=== PATIENT | female | born 1960 | race Caucasian/White ===

== ENCOUNTER 2025-11-12 07:24 | Outpatient (OUT) | payer MEDICARE, SELFPAY ==
--- OUTSIDE RECORDS SUMMARY | 2025-11-12 07:29 | XMS_ITS | Patient Health Record ---
Author Organization [facility] in [place] Address [address] [place] [address] Care Team Providers Care Project Surveyor Name Role Phone Kenneth Johnson Primary Care Provider Allergies No Known Allergies Reason For Referral No Information Medications Medication SIG (Take, Route, Frequency, Duration) Notes Start Date End Date Status ZyrTEC 10 MG 1 tablet Orally Once a day PRN 024 Not-TakingVitamin D3 25 MCG (1000 UT)1 tablet Orally Once a day4Active Lisinopril 20 MG1 tablet Orally daily; Duration: 90 daysActiveAmoxicillin 500 MG 4 caps Orally once; Duration: 1 days5Active Immunizations Vaccine Route Administration Date Status Comme nts Flu, Flucelvax (2102-7261) ( [address]) 6 mos +, single-dose syringe Unknown 09/04/2023 Administered Spikevax Moderna Syringe Pre-Filled 50 mcg/0.5 mSYperquh36/16/2023Administered Social History Tobacco Use: Social History Observation Description Date Details (start date - stop date) Never Smoker NA - NA Tobacco Control (Standard) Question Answer Notes Tobacco use: Nonsmoker AUDIT-C (Standard) Question Answer Notes Did you have a drink containing alcohol in the p ast year? No Hehxwo2PgjfzuzajthrbiDyccsxlc Problems Problem Type SNOMED Code ICD Code Onset Dates Problem Status W/U Status Risk Notes Problem Type 2 diabetes mellitus (27855826) Type 2 diabetes mellitus (E11.9) ActiveconfirmedProblemWell adult (002572355)Well adult (Z00.00)Activeconfirmed ProblemFibrocystic breast changes (35339213)Fibrocystic breast disease (N60.19) ActiveconfirmedProblemInternal derangement of knee (50957458)Internal derangement of knee (M23.90)ActiveconfirmedProblemEssential hypertension (00794597)Essential Hypertension (I10)ActiveconfirmedProblemOsteoarthritis of knee (611011456)Knee osteoarthritis (M17.10)Activeconfirmed Vital Signs Blood pressure diastolic 102 mm Hg 10/25/2025 Scjyur93 in10/25/2025lood pressure bbqarguq138 mm Hg10/25/20253195Bfmvhc509.8 lbs 10/25/2025BMI46.77 kg/m210/25/2025 Encounters Encounter Location Date Provider Diagnosis [facility] [address] [place] [address] 05/07/[address] [facility] [place] [address] 10/25/2025Doug HoyType 2 diabetes mellitus E11.9 ; Fibrocystic breast disease N60.19 and Essential Hypertension I10 Assessments Encounter Date Diagnosis (ICD Code) Assessment Notes Treatment Notes Treatment Clinical Notes Section Notes 10/25/2025 Type 2 diabetes mellitus (ICD-10 - E11.9) 10/25/2025Fibrocystic breast disease (ICD-10 - N60.19)10/25/2025Essential Hypertension (ICD-10 - I10) Plan Of Treatment Pending Test Test Name Order Date CMP (COMPLETE METABOLIC PANEL) HEMOGLOBIN A1C (GLYCO) 04/13/2024 HEMOGLOBIN A1C (GLYCO) 10/25/2025 IRON, TOTAL 10/25/2025 IRON, TOTAL 04/13/2024 LIPID PANEL (CHOL/TRIG/HDL/LDL) 04/13/20 24 LIPID PANEL (CHOL/TRIG/HDL/LDL) 10/25/20 25 CBC WITH DIFF (EXP 09/2025) 04/13/2024 VITAMIN D, 25 LEVEL (TOTAL) 04/13/2024 VITAMIN D, 25 LEVEL (TOTAL) 10/25/2025 MAMM MAMMOGRAM CAD DIAGNOSTIC 04/13/2024 Insulin Level 10/25/2025 THYROID PANEL (T4/TSH/FREE T3) 5 THYROID PANEL (T4/TSH/FREE T3) 4 MM screening mammo BI 10/25/2025 CMP (COMP MET [place]) w/eGFR CKD-EPI 2024 CBC WITH DIFF 10/25/2025 Insurance Providers Payer Name Payer Address Payer Phone Subscriber Number Group Number Insured Name Patient Relationship to Insured Coverage Start Date Coverage End Date [place] [address] [place] [address] [id number] Phillip IslasgailPeterwild - patient is the insuredFORMERLY [facility] [address] [place] [id number], PhillipNickwild - patient is the insured Medical (General) History Medical History History ICD Code Essential Hypertension I10 Fibrocystic breast disease N60.19 Internal derangement of knee M23.90 Knee osteoarthritis M17.10 Shoulder impingement syndrome M75.40 Type 2 diabetes mellitus E11.9 Surgical History Surgery Date(Month/Year) Colonoscopy 2022 EKG CholecystectomyBilateral Knee Qinfxqqwdjx9174Anivg Rotator Cuff Hsecqd1743
--- OUTSIDE RECORDS SUMMARY | 2025-11-12 07:29 | XMS_ITS | Clinical Summary ---
Author Organization [facility] Address [address] [place] [address] Care Team Providers Care Deli Cutter Slicer Name Role Phone Unavailable Primary Care Provider Unavailabl e Social History Tobacco UseTypesPacks/DayYears UsedDateSmoking Tobacco: Never Assessed CommentsUnknownSex and Gender InformationValueDate RecordedSex Assigned at Not on fileLegal ItlJhorjv42/15/2023 6:46 PM EDTGender IdentityNot on fileSexual OrientationNot on file Plan of Treatment Not on file
--- OUTSIDE RECORDS SUMMARY | 2025-11-12 07:29 | XMS_ITS | Clinical Summary ---
Author Organization [facility] Address [address] [place] [address] Care Team Providers Care Odd Job Laborer Name Role Phone Hawk Johnson MD Primary Care Provider [phone] Allergies Active AllergyReactionsCriticalityNoted RmntDpbxjxazEafsyaBgidSmr29/10/2015 Medications MedicationSigDispense QuantityRefillsLast FilledStart DateEnd DateStatus oxyCODONE (ROXICODONE) 5 MG immediate release tablet 1-2 tablets every 4 hours as needed for pain 100 tablet ctive Active Problems ProblemNoted DateDiagnosed RjtcMlsxow79/21/2015 Assessment & Plan (06/04/2015 2:01 PM EDT): Asymptomatic and likely just from surgery Will monitor for acute loss Pain06/04/2015 Assessment & Plan (06/04/2015 2:02 PM EDT): Is having more pain in her right knee. She's utilizing the oxycodone, but not the Dilaudid. Will encourage her to ask for the Dilaudid as needed Znyodlu5304/30/2015 Assessment & Plan (04/30/2015 11:06 AM EDT): - advised weight diet and exercise and eventually weight reduction - verbalized understanding Mlqntebza92/16/2015 Assessment & Plan (04/30/2015 11:07 AM EDT): - likely secondary to orthostatics hypotension - resolved DJD (degenerative joint disease) of knee04/29/2015 Assessment & Plan (06/04/2015 2:01 PM EDT): 4 weeks s/p left TKA & 1 day s/p right TKA Assessment & Plan (06/04/2015 9:23 AM EDT): -S/P right TKA -PT/OT -Pain control -DVT proph Assessment & Plan (05/01/2015 11:42 AM EDT): - noted to have progressive knee pain that had been resistant to conservative treatment. She underwent left knee surgery on 04/29/[address] Caldwell - surgery for pain control, DVT prophyaxes and bowel regimen - incentive spirometry - she is hemodynamically stable, eating well with some ambulation. Okay to d/c per primary team Assessment & Plan (04/30/2015 9:58 AM EDT): -S/P left TKA -PT/OT -Pain control -DVT proph Family History Medical HistoryRelationCommentsHypertensionFatherBrain cancerMotherUterine cancerSister 1Uterine cancerSister 2RelationStatusCommentsFatherAliveMother DeceasedSister 1AliveSister 2Alive Social History Tobacco UseTypesPacks/DayYears UsedDateSmoking Tobacco: NeverAlcohol UseStandard Drinks/WeekCommentsYes0 (1 standard drink = 0.6 oz pure alcohol)rare CommentsNoSex and Gender InformationValueDate RecordedSex Assigned at BirthNot on fileLegal BkeQshkyk30/26/2014 3:56 PM EDTGender IdentityNot on fileSexual OrientationNot on file Last Filed Vital Signs Vital SignReadingTime TakenCommentsBlood Lpjgilos917/8706/05/2015 6:49 AM EDT Lqfkm358106/05/2015 6:49 AM IYDRjvztcvjuxp85.7 ??C (98.1 ??F)06/05/2015 6:49 AM EDTRespiratory Japq219006/05/2015 12:58 PM EDTOxygen Qnzbrdalov44%06/05/2015 6:49 AM EDTInhaled Oxygen Concentration--Uotved962.8 kg (279 lb 8.7 oz)06/03/2015 8:52 AM PDBTwjdiu015.6 cm (5' 6 )06/03/2015 8:52 AM EDTBody Mass Index45.12 06/03/2015 8:52 AM EDT Plan of Treatment Not on file Medical Devices ImplantedTypeAreaManufacturerDevice IdentifierShelf Expiration DateModel / Serial / LotCement 1 X 40 Palacos Bone Single - [id number] Implanted:Qty: 2 on 04/29/2015 [facility] XibiCwhacm24/31/[id number] / [id number] / [id number] 1 X 40 Palacos Bone Single - [id number] Implanted:Qty: 1 on [facility]/03/[facility]: FtggStuhmv76/01/[id number] / / [id number] 1 X 40 Palacos Bone Single - [id number] Implanted:Qty: 1 on 06/03/2015 [facility]: AqjsGjblsq29/01/[id number] / / [id number] 35mm All Poly Persona - [id number] Implanted:Qty: 1 on 04/29/2015 [facility] Main JETTK112/14/[id number] / [id number] / [id number] Sz F Tib 5deg Nonpor Lt Persona - [id number] Implanted:Qty: 1 on 04/29/2015 by Toby Caldwell MD at [facility]: Main JETTK01/12/540236-3341-925-88 / [id number] / [id number] Sz8 Lt Nrw Cr Cmt Ccr Persona - [id number] Implanted:Qty: 1 on 04/29/2015 by Toby Caldwell MD at [facility]: Main [id number] / [id number] / [id number] Surf Ef 3-11 10mm Lt Cr Vivacit-E Persona - [id number] Implanted:Qty: 1 on 04/29/2015 [facility] Main [id number] / [id number] / [id number] 35mm All Poly Persona - [id number] Implanted:Qty: 1 on 06/03/2015 [facility]: Main [id number] / [id number] / [id number] Surf Ef 5-6 10mm Prolong Fixed Lps-Flex Nexgen - [id number] Implanted:Qty: 1 on 06/03/2015 [facility]: Main [id number] / [id number] / [id number] E-Rt Tivanium Lps-Flex Nexgen - [id number] Implanted:Qty: 1 on 06/03/2015 [facility]: GingerVIRGIERYDER [id number] / [id number]- / [id number] Sz5 Tib Stemmed Precoat Nexgen - [id number] Implanted:Qty: 1 on 06/03/2015 [facility]: Main [id number] / [id number] / [id number] Insurance * Guarantor: Roshan, ThelmaAccount TypeRelation to PatientDate of BirthPhone Billing AddressPersonal/MmgbdvBiyr1960 [address] [address] Advance Directives For more information, please contact: [phone] * Full Code (Latest Code Status on File) Date ActivatedDate InactivatedComments06/03/2015 11:54 AM06/05/2015 3:50 PM * Full Code Date ActivatedDate InactivatedComments04/29/2015 1:13 PM05/01/2015 4:08 PM Care Teams Team MemberRelationshipSpecialtyStart DateEnd Date Hawk Johnson MD [address] [facility] [place] [address] PCP - GeneralFamily Medicine04/19/15
--- NOTE | 2025-11-12 07:41 | MM_ITS ---
Patient Name: BRYANNA BRADSHAW MR#: [id number] : 1960 Exam Date: 11/12/2025 Ordering Doctor: DR AMANDA HOLCOMB . RADIOLOGY REPORT PROCEDURE: MM TOMOSYNTHESIS SCREENING BI COMPARISON: MG MAMM SCREEN 3D HOLLI CAD, 01/11/2023. MG MAMM SCREEN 3D HOLLI CAD, 11/05/2021. MG MAMM SCREEN HOLLI W CAD, 08/19/2018. MG MAMM HOLLI SCRN W CAD DIG, 07/14/2013. INDICATIONS: Screening Calculator Name NCI Breast Cancer Risk Assessment Tool 5 Year Breast Cancer Risk 1.30% Lifetime Breast Cancer Risk 5.00% Personal Breast Cancer No Personal Ovarian Cancer No Treatments None Family Cancers Mother with brain cancer at age 82; Sister with uterine cancer at age 60; Sister with uterine cancer at age 63. LOCATION: [facility] BREAST COMPOSITION: There are scattered areas of fibroglandular density. FINDINGS: RIGHT BREAST: No significant suspicious finding. LEFT BREAST: No significant suspicious finding. DIAGNOSTIC CATEGORY 1--NEGATIVE. RECOMMENDATIONS: ROUTINE MAMMOGRAM AND CLINICAL EVALUATION IN 12 MONTHS. Dictated by: Sam Sosa DO on 11/12/2025 at 11:53 Approved by: Sam Sosa DO on 11/12/2025 at 11:54
[2025-11-12 07:53] LABS: Hematocrit 39.4 % (36.0-48.0); Hemoglobin 12.5 g/dL (12.0-16.0); Immature Granulocytes Abs Auto 0.02 10^3/uL (0.00-0.03); Immature Granulocytes Pct Auto 0.2 % (0.0-0.5); Lymphocytes Absolute Auto 1.6 10^3/uL (1.2-3.8); Mean Corpuscular HGB Conc 31.7 g/dL (29.9-35.2); Mean Corpuscular Hemoglobin 28.7 pg (26.7-34.0); Mean Corpuscular Volume 90.4 fL (81.0-99.0); Platelet Count 244 10^3/uL (150-450); Red Blood Count 4.36 10^6/uL (4.20-5.40); White Blood Count 8.1 10^3/uL (4.0-11.0)
[2025-11-12 09:06] LABS: Iron 53.0 ug/dL (50.0-170.0)
[2025-11-12 09:57] LABS: Alanine Aminotransferase 25 U/L (14-59); Albumin Globulin Ratio 0.8; Albumin Level 3.5 g/dL (3.4-5.0); Alkaline Phosphatase 105 U/L (46-116); Anion Gap 13.7; Aspartate Amino Transferase 11 U/L (15-37); Blood Urea Nitrogen 16.0 mg/dL (7.0-18.0); Calcium 9.1 mg/dL (8.5-10.1); Carbon Dioxide 27.9 mmol/L (21.0-32.0); Chloride 104 mmol/L (98-107); Cholesterol 164 mg/dL (<=200); Estimated GFR (African America >60 (>=60 mL/min/1.73m^2); Estimated GFR (Non-African Ame >60 (>=60 mL/min/1.73m^2); Free T3 2.58 pg/mL (2.18-3.98); Globulin 4.2 g/dL; Glucose 104 mg/dL (74-106); HDL Cholesterol 47 mg/dL (40-60); Potassium 3.6 mmol/L (3.5-5.1); Sodium 142 mmol/L (136-145); Thyroid Stimulating Hormone 2.213 uIU/mL (0.358-3.740); Total Protein 7.7 g/dL (6.4-8.2); Triglycerides 87 mg/dL (<=150); VLDL CHOLESTEROL 17.4 mg/dL
== END 2025-11-12 07:25 | disposition home or self-care (01) ==
LOC: MAMMO 07:26
PROVIDERS: PCP Family Medicine; Visit Provider Family Medicine
DX: Z12.31 Encounter for screening mammogram for malignant neoplasm of breast (principal); E11.9 Type 2 diabetes mellitus without complications; N60.19 Diffuse cystic mastopathy of unspecified breast; I10 Essential (primary) hypertension; Z80.8 Family history of malignant neoplasm of other organs or systems
CPT/HCPCS: 36415; 77063; 77067; 80053; 80061; 82306; 83036; 83525; 83540; 84436; 84443; 84481; 85025